=== PATIENT | female | born 1960 | race Caucasian/White ===

== ENCOUNTER 2020-11-18 15:16 | Emergency (ER) | payer BC, MEDICAID ==
[~2020-11-18] VITALS: Ht 157.5 cm; Wt 63.6 kg
[~2020-11-18 15:16] MED LIST: CALC-642 PO; ERGO500014 PO; MULT-227 PO; OMEG300C3 PO; VITA1TAB20 PO
[2020-11-18 15:53] LABS: BASOPHILS # (AUTO) 0.1 X10'3 (0-0.2); BASOPHILS % (AUTO) 0.9 % (0-1); EOSINOPHILS # (AUTO) 0.1 X10'3 (0-0.9); EOSINOPHILS % (AUTO) 1.8 % (0-6); HEMATOCRIT 37.5 % (35.0-45.0); HEMOGLOBIN 12.7 g/dl (12.0-16.0); LYMPHOCYTES # (AUTO) 2.6 X10'3 (1.1-4.8); LYMPHOCYTES % (AUTO) 31.4 % (21-51); MEAN CORPUSCULAR HEMOGLOBIN 28.4 PG (27.0-31.0); MEAN CORPUSCULAR HGB CONC 33.9 g/dL (33.0-36.5); MEAN CORPUSCULAR VOLUME 83.9 FL (78-98); MEAN PLATELET VOLUME 7.2 FL (7.4-10.4); MONOCYTES # (AUTO) 0.5 X10'3 (0-0.9); MONOCYTES % (AUTO) 5.9 % (2-12); PLATELET COUNT 298 X10'3 (140-440); RED BLOOD COUNT 4.47 X10'6 (4.20-5.60); RED CELL DISTRIBUTION WIDTH 13.7 % (11.5-14.5); WHITE BLOOD COUNT 8.3 X10'3 (4.5-11.0)
[2020-11-18 16:09] LABS: ALANINE AMINOTRANSFERASE 20 U/L (12-78); ALBUMIN 3.3 G/DL (3.4-5.0); ALBUMIN/GLOBULIN RATIO 0.7 (1.1-1.5); ALKALINE PHOSPHATASE 76 IU/L (46-116); ANION GAP 10 (8-16); ASPARTATE AMINO TRANSFERASE 14 U/L (10-37); BILIRUBIN,TOTAL 0.4 MG/DL (0.1-1.0); BLOOD UREA NITROGEN 34 MG/DL (7-18); CALCIUM 8.2 MG/DL (8.5-10.1); CHLORIDE 101 MMOL/L (99-107); CREATININE 1.48 MG/DL (0.40-0.90); GLUCOSE 96 MG/DL (70-104); POTASSIUM 3.2 MMOL/L (3.5-5.1); SODIUM 140 MMOL/L (135-145); TOTAL CARBON DIOXIDE 29.3 MMOL/L (24-32); TOTAL PROTEIN 8.2 G/DL (6.4-8.2); eGFR 36 ML/MIN
[2020-11-18 16:15] LABS: LIPASE 163 U/L (73-393)
[2020-11-18] MEDS ORDERED: normal saline 1000ml 1,000 ML IV ONE (16:20)
[2020-11-18] MEDS ORDERED: ondansetron/PF 4mg/2ml inj IV ONE (16:35)
[2020-11-18] MEDS ORDERED: POTASSIUM BICARB 20meq eff tab 20 MEQ TABLET.EFF PO ONE (16:40)
[2020-11-18] MEDS ORDERED: iohexol 300mg/ml 100ml inj. ONE (16:43)
--- NOTE | 2020-11-18 18:13 | NUR ---
pt walking to restroom with this nurse. weak, but able to ambulate. continue monitoring
[2020-11-18 18:46] LABS: CLARITY,URINE CLEAR (Clear); COLOR,URINE YELLOW (Yellow); GLUCOSE, URINE NEGATIVE (Neg); KETONES,URINE NEGATIVE (Neg); LEUKOCYTE ESTERASE ,URINE SMALL (Neg); NITRITES, URINE NEGATIVE (Neg); OCCULT BLOOD,URINE NEGATIVE (Neg); PH,URINE 5.5 (4.8-8.0); PROTEIN,URINE NEGATIVE (Neg); UROBILINOGEN,URINE 0.2 E.U/dL (0.2-1.0)
[2020-11-18 18:49] LABS: UA COLLECTION TYPE VOIDED
[2020-11-18 18:50] LABS: BACTERIA,URINE FEW /HPF (Neg); RBC,URINE NONE SEEN /HPF (0-2); SQUAMOUS EPITHELIAL CELL,UR FEW /LPF (FEW); WBC CLUMPS,URINE MODERATE /HPF (NEGATIVE)
[2020-11-18] MEDS ORDERED: CefTRIAXone 250MG IM Kit w/LIDOcaine IM ONE (19:00)
[2020-11-18] MEDS ORDERED: CIPR-202 PO (19:32)
[2020-11-18 19:48] VITALS: BP 102/72
== END 2020-11-18 19:51 | disposition home or self-care (01) ==
LOC: ER 15:17
DX: N39.0 Urinary tract infection, site not specified (principal); Z20.822 Contact with and (suspected) exposure to COVID-19; R11.0 Nausea; R10.84 Generalized abdominal pain; Z79.899 Other long term (current) drug therapy
CPT/HCPCS: 36415; 70450; 71045; 74177; 80053; 81001; 83690; 83880; 84484; 85025; 87077; 87088; 87186; 87635; 96361; 96372; 96374; 99285; C9803; J0696; J2405; J7030; Q9967

== ENCOUNTER 2020-12-07 16:26 | Emergency (ER) | payer MEDICAID ==
[~2020-12-07] VITALS: Ht 157.5 cm; Wt 67.3 kg
[2020-12-07] MEDS ORDERED: normal saline 1000ML IV soln IVB ONE (16:35)
[2020-12-07] MEDS ORDERED: ondansetron/PF 4mg/2ml inj IV ONE (16:35)
[2020-12-07 17:12] LABS: BASOPHILS # (AUTO) 0.2 X10'3 (0-0.2); BASOPHILS % (AUTO) 2.6 % (0-1); EOSINOPHILS # (AUTO) 0.2 X10'3 (0-0.9); HEMATOCRIT 34.5 % (35.0-45.0); HEMOGLOBIN 11.5 g/dl (12.0-16.0); MEAN CORPUSCULAR HGB CONC 33.2 g/dL (33.0-36.5); MEAN CORPUSCULAR VOLUME 84.3 FL (78-98); MEAN PLATELET VOLUME 7.1 FL (7.4-10.4); NEUTROPHILS # (AUTO) 4.6 X10'3 (1.8-7.7); RED BLOOD COUNT 4.09 X10'6 (4.20-5.60); WHITE BLOOD COUNT 7.4 X10'3 (4.5-11.0)
[2020-12-07 17:13] LABS: EOSINOPHILS % (AUTO) 2.4 % (0-6); LYMPHOCYTES % (AUTO) 26.7 % (21-51); MONOCYTES # (AUTO) 0.5 X10'3 (0-0.9); MONOCYTES % (AUTO) 6.5 % (2-12); NEUTROPHILS % (AUTO) 61.8 % (42-75); PLATELET COUNT 268 X10'3 (140-440); RED CELL DISTRIBUTION WIDTH 14.2 % (11.5-14.5)
[2020-12-07 17:28] LABS: ALANINE AMINOTRANSFERASE 26 U/L (12-78); ALBUMIN 2.9 G/DL (3.4-5.0); ALBUMIN/GLOBULIN RATIO 0.7 (1.1-1.5); ALKALINE PHOSPHATASE 87 IU/L (46-116); ANION GAP 11 (8-16); ASPARTATE AMINO TRANSFERASE 19 U/L (10-37); BILIRUBIN,TOTAL 0.2 MG/DL (0.1-1.0); BLOOD UREA NITROGEN 52 MG/DL (7-18); BUN/CREATININE RATIO 39.4 (6.6-38.0); CALCIUM 7.8 MG/DL (8.5-10.1); CHLORIDE 108 MMOL/L (99-107); CREATININE 1.32 MG/DL (0.40-0.90); GLUCOSE 108 MG/DL (70-104); POTASSIUM 3.1 MMOL/L (3.5-5.1); SODIUM 144 MMOL/L (135-145); TOTAL PROTEIN 7.3 G/DL (6.4-8.2); eGFR 41 ML/MIN
[2020-12-07 17:29] LABS: ETHANOL < 0.010 GM/DL (0.0-0.010); LIPASE 155 U/L (73-393); TROPONIN I < 0.04 NG/ML (0.0-0.05)
[2020-12-07] MEDS ORDERED: potassium Cl 20 mEq SR tablet PO STA (17:31)
[2020-12-07] MEDS ORDERED: potassium Cl 10 mEq/100mL bag IV ONE (17:35)
[2020-12-07] MEDS ORDERED: ONDA4TAB6 PO (17:55)
[2020-12-07 19:00] VITALS: BP 97/64
== END 2020-12-07 19:10 | disposition home or self-care (01) ==
LOC: ER 16:27
DX: E86.0 Dehydration (principal); R11.2 Nausea with vomiting, unspecified; R19.7 Diarrhea, unspecified; R06.02 Shortness of breath; J44.9 Chronic obstructive pulmonary disease, unspecified; Z95.0 Presence of cardiac pacemaker; Z79.899 Other long term (current) drug therapy
CPT/HCPCS: 36415; 71045; 80053; 80320; 83690; 84145; 84484; 85025; 93005; 96365; 96375; 99285; J2405; J3480; J7030

== ENCOUNTER 2024-10-28 10:49 | Emergency (ER) | payer MEDICARE, MEDICAID ==
[~2024-10-28] VITALS: Ht 160 cm; Wt 88.6 kg
[~2024-10-28 10:49] MED LIST changes: +ONDA4TAB6 PO; +VITA-290 PO; -VITA1TAB20 PO
[2024-10-28 10:54] VITALS: BP 130/65; PULSE 70; O2SAT 94
[2024-10-28] MEDS: ondansetron 4mg rapidly disintigrating tab PO ONE (11:29)
[2024-10-28] MEDS: HYDROcodone/acetaminophen 10/325mg tab PO ONE (11:29)
[2024-10-28] MEDS ORDERED: HYDR-3973 PO (12:02)
[2024-10-28] MEDS: morphine sulfate IR 15MG tablet PO STA (12:23)
[2024-10-28 12:34] VITALS: RESP 17; TEMP 97.2
[2024-10-30] MEDS ORDERED: LAMO25TA5 PO (13:54)
[2024-10-30] MEDS ORDERED: BUSP30TA3 PO (13:54)
[2024-10-30] MEDS ORDERED: GABA-530 PO (13:54)
[2024-10-30] MEDS ORDERED: HYDR25TA4 PO (13:54)
[2024-10-30] MEDS ORDERED: FERR325T29 PO (13:54)
[2024-10-30] MEDS ORDERED: DULO60CA65 PO (13:54)
[2024-10-30] MEDS ORDERED: LUMA21CA PO (13:54)
[2024-10-30] MEDS ORDERED: POTA-206 PO (13:54)
[2024-10-30] MEDS ORDERED: LISI20TA28 PO (13:54)
== END 2024-10-28 12:36 | disposition home or self-care (01) ==
LOC: ER 10:49
DX: S42.292A Other displaced fracture of upper end of left humerus, initial encounter for closed fracture (principal); E11.9 Type 2 diabetes mellitus without complications; J44.9 Chronic obstructive pulmonary disease, unspecified; Z95.0 Presence of cardiac pacemaker; Z79.899 Other long term (current) drug therapy; W18.2XXA Fall in (into) shower or empty bathtub, initial encounter; Y93.E1 Activity, personal bathing and showering; Y92.89 Other specified places as the place of occurrence of the external cause; Y99.8 Other external cause status
CPT/HCPCS: 29105; 73030; 73060; 99284; A4565; L3650

== ENCOUNTER 2024-12-15 08:52 | Inpatient (IN) | payer MEDICARE, MEDICAID ==
[2024-12-02 16:21] LABS: BASOPHILS % (AUTO) 0.4 % (0-1); EOSINOPHILS % (AUTO) 0 % (0-6); LYMPHOCYTES # (AUTO) 2.1 X10'3 (1.1-4.8); LYMPHOCYTES % (AUTO) 25.7 % (21-51); MEAN CORPUSCULAR HEMOGLOBIN 29.9 PG (27.0-31.0); MEAN CORPUSCULAR HGB CONC 33.8 g/dL (33.0-36.5); MEAN CORPUSCULAR VOLUME 88.5 FL (78-98); MEAN PLATELET VOLUME 6.6 FL (7.4-10.4); MONOCYTES # (AUTO) 0.8 X10'3 (0-0.9); MONOCYTES % (AUTO) 10.2 % (2-12); NEUTROPHILS # (AUTO) 5.3 X10'3 (1.8-7.7); NEUTROPHILS % (AUTO) 63.7 % (42-75); PRE OP HEMATOCRIT 36.1 % (35.0-45.0); PRE OP HEMOGLOBIN 12.2 g/dL (12.0-16.0); PRE OP PLATELET COUNT 345 X10'3 (140-440); PRE OP WHITE BLOOD COUNT 8.3 10'3 (4.8-10.8); RED BLOOD COUNT 4.07 X10'6 (4.20-5.60); RED CELL DISTRIBUTION WIDTH 13.8 % (11.5-14.5)
[2024-12-02 16:28] LABS: PRE OP INR 1.1 INR; PRE OP PROTIME 11.2 SECONDS (9.0-12.0)
[2024-12-02 16:30] LABS: ALBUMIN/GLOBULIN RATIO 0.4 (1.1-1.5); ALKALINE PHOSPHATASE 111 IU/L (46-116); BLOOD UREA NITROGEN 21 MG/DL (7-18); BUN/CREATININE RATIO 12.7 (10.0-20.0); CALCIUM 8.7 MG/DL (8.5-10.1); CHLORIDE 103 MMOL/L (99-107); CREATININE 1.66 MG/DL (0.40-0.90); PRE OP ALT 27 U/L (30-65); PRE OP ANION GAP 9 (8-16); PRE OP AST 28 U/L (10-37); PRE OP BILIRUB, TOTAL 0.5 MG/DL (0.0-1.0); PRE OP GLUCOSE 101 MG/DL (70-104); PRE OP SODIUM 139 MMOL/L (135-145); TOTAL CARBON DIOXIDE 27.5 MMOL/L (24-32); TOTAL PROTEIN 9.9 G/DL (6.4-8.2); eGFR 31 ML/MIN
[2024-12-02 16:34] LABS: PRE OP POTASSIUM 3.1 MMOL/L (3.4-5.1)
[~2024-12-15] VITALS: Ht 160 cm; Wt 79.7 kg
[2024-12-15] VITALS (24 sets, daily range): BP systolic 80–122; BP diastolic 41–70; PULSE 60–83; RESP 11–16; TEMP 95.8–98.3; O2SAT 90–99
[~2024-12-15 08:52] MED LIST changes: +BUSP30TA3 PO; -CALC-642 PO; +DULO60CA65 PO; -ERGO500014 PO; +FERR325T29 PO; +GABA-530 PO; +HYDR25TA4 PO; +LAMO-24 PO; +LISI20TA28 PO; +LUMA21CA PO; -MULT-227 PO; -OMEG300C3 PO; -ONDA4TAB6 PO; +VANCOMYCIN 1,500MG inj. 1,500 MG in normal saline 500ml IV soln 300 ML IV ONE; -VITA-290 PO
[2024-12-15] MEDS: famotidine 20mg tablet PO ONE (09:46)
[2024-12-15] MEDS: ceFAZolin 2gm/dext,iso 50mL 50 ML IV ONE (09:47)
[2024-12-15] MEDS: ringers solution, lacted 1,000 ML IV SCH ×2 (09:47→13:45)
[2024-12-15] MEDS: VANCOMYCIN/H2O 1.5g/300mL PB 300 ML IV ONE (09:47)
[2024-12-15 10:09] LABS: ISTAT CREATININE 1.5 mg/dL (0.6-1.1); ISTAT IONIZED CALCIUM 1.16 mmol/L (1.03-1.32); ISTAT K 3.3 mmol/L (3.5-5.1); POC BUN/CREATININE RATIO 17.3 (6.6-38.0)
[2024-12-15] MEDS ORDERED: bacitracin 15gm ointment TP ONE (10:35)
[2024-12-15] MEDS ORDERED: sevoflurane 250ml liquid IH ONE (11:30)
[2024-12-15] MEDS ORDERED: midazolam 1 mg/ML 2ml injection ONE (11:43)
[2024-12-15] MEDS ORDERED: fentaNYL/PF 50MCG/1 ML 2ML syringe ONE (11:43)
[2024-12-15] MEDS ORDERED: albumin (Human) 5% 250ml 250 ML IV ONE (12:25)
[2024-12-15] MEDS ORDERED: hydrALAZINE 20mg/ml inj. IV PRN (13:45)
[2024-12-15] MEDS ORDERED: labetalol 20mg/4ml (5mg/ml) syringe IV PRN (13:45)
[2024-12-15] MEDS ORDERED: ondansetron/PF 4mg/2ml inj IV PRN (13:45)
[2024-12-15] MEDS ORDERED: morphine 2 MG/ML inj. syringe IV PRN (13:45)
[2024-12-15] MEDS ORDERED: HYDROmorphone/PF 0.2 MG/ML SYRINGE IV PRN (13:45)
[2024-12-15] MEDS ORDERED: vancomycin 1,000mg inj ONE (13:48)
[2024-12-15] MEDS: vancomycin 1,000mg inj OGT ONE (14:00)
[2024-12-15] MEDS ORDERED: ePHEDrine 50MG/ML INJ. ONE (14:06)
[2024-12-15] MEDS ORDERED: dexamethasone sod phosphate 4mg/ml inj. ONE (14:07)
[2024-12-15] MEDS ORDERED: ROPIVAcaine 0.5% (5mg/ml) 30ml vial ONE (14:07)
[2024-12-15] MEDS ORDERED: acetaminophen 325mg tablet PO PRN (14:25)
[2024-12-15] MEDS ORDERED: diphenhydrAMINE 25mg capsule PO PRN ×2 (14:25)
[2024-12-15] MEDS ORDERED: magnesium hydroxide 30ml (MOM) UD suspension PO PRN (14:25)
[2024-12-15] MEDS ORDERED: bisacodyl 10mg suppository rectal RC PRN (14:25)
[2024-12-15] MEDS ORDERED: PCA WASTE DOCUMENTATION 1 MG ML MC SCH (14:25)
[2024-12-15] MEDS ORDERED: naloxone 0.4 mg/ml inj IV PRN (14:25)
--- NOTE | 2024-12-15 14:38 | OPERATIVE REPORT ---
Operative Report Providers to ~ Date of Procedure: Dec 15, 2024 Pre-Operative Diagnosis: Proximal proximal left humerus fracture Post-Operative Diagnosis SAME as PRE-Op Procedure Performed Left Humerus ORIF Surgeon: Ananth Holden MD Packing Attendant Bobby Salcedo MD Anesthesiologist: Tay Montanez Type of Anesthesia: General Findings: Two part unstable proximal left humerus fracture Complications None Prosthetics\Implants used: Three hole left proximal humerus plate multiple locking and compression screws. Estimated Blood Loss: Proximally 100 cc Specimen Removed: An none Description of Procedure: Patient was taken to the operating room after I had obtained informed consent discussing her of the need for evaluation anesthesia in the potential for surgical intervention in the form of the proximal humeral plating. Risks benefits potential complications and limitations were discussed in detail including the need for removal of the plate as subcutaneous to have significant pain or shoulder stiffness after the bone fracture had healed. I obtained in formed consent she signed the extent of the consent form and I signed her left shoulder. She was now taken to the operating room she was given a general anesthetic placed in a semi-sitting beach chair position under general anesthesia SCDs were placed in her lower extremities. Her left shoulder was examined under anesthesia under C-arm fluoroscopy revealing the two part fracture being still unstable 6 in post injury without any evidence of callus formation. This is therefore necessitated need for surgical stabilization of the fracture. Proximal fracture involving the greater trochanter had minimal displacement and no significant elevation so therefore I am treating this primarily has a two point fracture around the anatomic neck. Her left shoulder and arm were prepped and draped in usual sterile orthopedic fashion surgical time-out was taken per protocol and the case was then. A [employer] arm shoulder manipulator at fisehr was used during this case. An anterior deltopectoral approach was used this measured approximately 8 in in length minimal release of the pectoralis attachments of the proximal humerus was required the biceps tenolysis was a tenodesis was required for the plate fixation of the proximal humerus this is done while releasing in the rotator cuff interval and using tenotomy scissors to remove and released the biceps tendon at the attachment site of the superior labrum periosteum was primarily intact at the fracture site and a proximal humeral plate was fashion to be parallel to the lateral aspect of the bicipital groove fixating the proximal screws 1st and then reducing the fracture with a compression screws to the plate and under fluoroscopic guidance achieving near anatomic fixation and alignment of fracture locking screws were then used along the distal shaft as well as locking screws in the humeral head anterior and posterior screws were used. Intra-articular C-arm fluoroscopy was used with a sterile internal rotation of the head and a fluoroscopic time and real-time to make sure that we had excellent fixation and placement of all screws then were confined within the humeral head hemostasis was achieved meticulously with electrocautery of the cephalic vein was left intact and retracted laterally during the approach. Copious antibiotic antiseptic irrigation was accomplished with Aricept. No drains were required. Closure of the deltopectoral fascia was accomplished with 0 Vicryl subcuticular closure was accomplished with 2-0 Vicryl and skin was closed with skin anai silver dressing was applied I had island dressing was applied a shoulder immobilizer was applied. Placement after fixation the shoulder was taken through a range of motion found to be stable. There were no apparent perioperative complications Counts repoted as correct: Yes ANANTH HOLDEN MD Dec 15, 2024 14:38
[2024-12-15] MEDS: morphine 4 MG/ML inj SYRINge IV PRN (15:03)
[2024-12-15] MEDS: HYDROmorphone/PF 0.2 MG/ML SYRINGE IV PRN (15:10)
[2024-12-15] MEDS: ceFAZolin/D5W- 1GM premix 50 ML IV SCH (17:05)
[2024-12-15] MEDS: HYDROmorphone 1 mg/ml syringe IV PRN (17:17)
[2024-12-15] MEDS: tranexamic acid inj. 800 MG in normal saline 100ml IV soln 92 ML IV ONE (17:31)
--- NOTE | 2024-12-15 19:18 | CONSULTATION REPORT - RESIDENT ---
Consult Providers to CC Resident Creating Document: RENETTARENETTA HORNECAIO Jasso RES History of Present Illness Primary Medical Doctor: Dr. Joan Pollard. [facility]. Concrete Pile Driver Operator: Dr. Jed Cuba. Reason for Admit\Complaint: Left shoulder pain History of Present Illness [id number] female patient with past medical history of hypertension, sick sinus syndrome s/p pacemaker, epileptic seizures, came to the hospital with chief complaint of left shoulder pain. The patient reports that approximately one month ago she slipped and fell down in her shower. At that time she call to the ambulance and the patient was taken to the emergency department. The patient endorses that she has a follow-up with orthopedic surgeon Dr. Torres, who decided to perform three vergara left proximal humerus plate, multiple locking and compression screws today. We were consulted for further management of comorbidities. The patient currently denies any chest pain, shortness of breath, palpitations, urinary intestinal symptoms. Reports pain in surgical area scale 6/10 in intensity without radiation, sharp type. Allergies: Coded Allergies: No Known Allergies (Unverified , 10/29/24) Home Medications Home Medications Active Reported Lisinopril 20 Mg Tablet 0.5 Tab PO DAILY Hydrochlorothiazide 25 Mg Tablet 0.5 Tab PO DAILY Ferrous Sulfate 325 Mg (65 Mg Iron) Tablet 1 Tab PO DAILY Lamotrigine 25 Mg Tablet 2 Tab PO BID Gabapentin 100 Mg Capsule 300 Mg PO TID Caplyta (Lumateperone Tosylate) 21 Mg Capsule 1 Cap PO DAILY Duloxetine HCl 60 Mg Capsule.dr 2 Cap PO DAILY Buspirone HCl 30 Mg Tablet 1 Tab PO BID Past Medical History Past Medical History Hypertension taking hydrochlorothiazide and lisinopril. Sick sinus syndrome s/p pacemaker. Epilepsy. Past Surgical History Surgical History Comment S/P pacemaker. Cholecystectomy. Tonsillectomy. Hysterectomy and oophorectomy. S/p ventral abdominal hernia. Family History Family History: (COPD) Chronic obstructive lung disease MOTHER, , Age: 59, Cause: Pancreatic cancer (DM Type 2) Diabetes mellitus type 2 MOTHER, , Age: 59, Cause: Pancreatic cancer Abdominal aortic aneurysm (AAA) repair FATHER (5 aneurysms w/ 5 stents) Asbestosis FATHER FH: renal failure FATHER Past Social History Social History Comment Denies smoking. Denies alcohol use. Denies drugs use. The patient lives alone. Grandson usually helps her. Exam Vitals: Vital Signs Date Time Temp Pulse Resp B/P (MAP) Pulse Ox O2 Delivery O2 Flow Rate FiO2 12/15/24 18:30 97.5 69 16 80/51 (61) 91 Nasal Cannula 2.0 Physical exam: General: Well alert, well oriented, not confused, not agitated, not in acute distress, well cooperated during the physical. HEENT: Conjunctive are pink, sclerae clear, no icterus, pupil is equal in both sides, reactive to light, no ear discharge, no pharyngeal erythema or an edema. Neck: Supple, no JVD, no lymphadenopathy and thyromegaly. Chest: Equal air entry on both lungs, no additional sounds no rhonchi no wheezing at the moment. Cardiovascular: S1-S2 regular sinus rhythm and, regular rate, no gallops, no rubs, no murmurs Abdomen: No visible peristalsis, Bowel sounds present on auscultation, soft, nontender, no guarding, no rigidity, presence of abdominal scars from previous surgery without signs of infection or inflammation. Extremities: No obvious deformities, no pitting edema bilaterally, capillary refill intact, peripheral pulsations are intact on both sides, presence of clean dressing in the left shoulder. Central Nervous System: No focal neurological deficits, no motor or sensory weakness in all 4 extremities, could move all 4 extremities, 2+ deep tendon reflexes, negative Babinski. Musculoskeletal: No joint swelling, deformities, inflammations, and no scoliosis and back tenderness Skin: Warm and dry. Diagnostic Data Diagnostic Data: Laboratory Tests Test 12/02/24 16:05 Prothrombin Time 11.2 SECONDS (9.0-12.0) INR International Normalized Ratio 1.1 INR Activated Partial Thromboplast Time 29 SECONDS (22-32) Additional Plan Assessment and plan: 64-year-old female patient came to the hospital with chief complaint of left shoulder pain diagnosed with left proximal humerus fracture. Underwent surgical repair on 12/15/2024. We were consulted for further management of comorbidities . Left shoulder pain: Left proximal humerus fracture: S/P left proximal humerus plate multiple locking and compression screws: POD 0: The patient reports that she had a mechanical fall in his shower. The patient was scheduled for surgical repair on 12/15/[address] Torres. Pain control with Dilaudid. On aspirin 325 mg daily. On cefazolin q.8h IV. To be stopped on 12/16/2024. Acute kidney injury likely secondary to renal tubular stasis: Hypokalemia: Creatinine 1.66, GFR 35, BUN/creatinine ratio 17.3. Follow-up urine lytes. On ranger lactate at 20 mL/hour. Potassium replacement protocol in place. Hypertension: Current blood pressure is 80/51. We will held blood pressure medication. Epilepsy: We will continue her home medication lamotrigine. Code status: Full code DVT prophylaxis: Currently on aspirin 325 mg. Analgesia/sedation: Dilaudid Line/tube: PIV GI prophylaxis: None Nutrition: Regular diet PT: Ordered Prognosis: Guarded Disposition: We will continue medical treatment. Anticipated discharge tomorrow. Caio Multani Internal Medicine Resident [facility] Date of Service: Dec 15, 2024 Billing Provider: VERN RAZO MD Common Visit Codes: [id number] INP/OBS CARE (HIGH) CAIO ALVARADO, RES Dec 15, 2024 19:17 VERN RAZO MD Dec 16, 2024 22:31
[2024-12-15] MEDS ORDERED: potassium Cl 40MEQ/1/2NS 520ml 520 ML IV PRN (19:30)
[2024-12-15] MEDS ORDERED: potassium Cl 20 mEq SR tablet PO PRN (19:30)
[2024-12-15] MEDS ORDERED: magnesium sulf-water 4G/100mL 100 ML IV PRN (19:30)
[2024-12-15] MEDS ORDERED: magnesium Cl slow-release 64mg tablet PO PRN (19:30)
[2024-12-15] MEDS: acetaminophen 325mg tablet PO SCH (20:16)
[2024-12-15] MEDS: lamoTRIgine 25mg tablet PO SCH (20:16)
[2024-12-15] MEDS: gabapentin 300mg capsule PO SCH (20:16)
[2024-12-15] MEDS: potassium Cl 20 mEq SR tablet PO PRN (20:16)
[2024-12-15] MEDS: busPIRone 15mg tablet PO SCH (20:17)
[2024-12-15] MEDS: vancomycin/NS 1 GM ADD-VANTAGE 250 ML IV SCH (20:17)
[2024-12-15] MEDS: sennosides 8.6mg tablet PO SCH (20:17)
[2024-12-15] MEDS: potassium Cl 20mEq in NS 1,000 ML IV SCH (20:18)
[2024-12-15] MEDS ORDERED: gabapentin 100mg capsule PO SCH (21:00)
--- NOTE | 2024-12-15 22:27 | RADIOLOGY REPORT ---
LEFT SHOULDER 1 VIEW REASON FOR EXAM: POST OP. TECHNIQUE: AP view of the left shoulder is submitted for review. COMPARISON: Left shoulder series 10/28/2024 FINDINGS: Skin anai project over the shoulder. There is extensive fixation hardware at the humeral head and proximal shaft. There is bony callus about the old fracture sites in the humeral head and neck. There is partial visualization of a cardiac pacer. No new fracture is identified. The soft tiss ues are grossly unremarkable. IMPRESSION: Bony callus formation in the area of surgically fixed humeral head and neck fractures. No new fracture is identified.
[2024-12-16] VITALS (7 sets, daily range): BP systolic 98–138; BP diastolic 50–79; PULSE 53–82; RESP 15–17; TEMP 97.2–98.4; O2SAT 90–98
[2024-12-16] MEDS: oxyCODONE IR 5mg (immed. release) tablet PO PRN ×2 (03:09→11:40)
[2024-12-16] MEDS: HYDROmorphone inj. 0.5 MG/0.5 ML DISP.SYRIN IV PRN ×2 (04:47→14:37)
[2024-12-16] MEDS: normal saline 1000ml 1,000 ML IV SCH (06:50)
[2024-12-16] MEDS: LUMATEPERONE TOSYLATE 21 MG PO SCH (08:00)
[2024-12-16] MEDS: ferrous sulfate 325mg tablet PO SCH (08:02)
[2024-12-16] MEDS: duloxetine 30mg CAPSULE.DR PO SCH (08:02)
[2024-12-16] MEDS: aspirin 325mg tablet PO SCH (08:03)
[2024-12-16 08:51] LABS: BASOPHILS % (AUTO) 0.1 % (0-1); EOSINOPHILS % (AUTO) 0 % (0-6); HEMATOCRIT 32.2 % (35.0-45.0); HEMOGLOBIN 10.5 g/dl (12.0-16.0); LYMPHOCYTES # (AUTO) 1.7 X10'3 (1.1-4.8); LYMPHOCYTES % (AUTO) 10.9 % (21-51); MEAN CORPUSCULAR HEMOGLOBIN 29.2 PG (27.0-31.0); MEAN CORPUSCULAR HGB CONC 32.5 g/dL (33.0-36.5); MEAN CORPUSCULAR VOLUME 89.9 FL (78-98); MEAN PLATELET VOLUME 7.5 FL (7.4-10.4); MONOCYTES # (AUTO) 1.6 X10'3 (0-0.9); MONOCYTES % (AUTO) 9.8 % (2-12); NEUTROPHILS # (AUTO) 12.7 X10'3 (1.8-7.7); NEUTROPHILS % (AUTO) 79.2 % (42-75); PLATELET COUNT 271 X10'3 (140-440); RED BLOOD COUNT 3.58 X10'6 (4.20-5.60); RED CELL DISTRIBUTION WIDTH 13.6 % (11.5-14.5); WHITE BLOOD COUNT 16.1 X10'3 (4.5-11.0)
[2024-12-16 09:08] LABS: ALANINE AMINOTRANSFERASE 18 U/L (12-78); ALBUMIN 2.5 G/DL (3.4-5.0); ALBUMIN/GLOBULIN RATIO 0.4 (1.1-1.5); ALKALINE PHOSPHATASE 83 IU/L (46-116); ANION GAP 8 (8-16); ASPARTATE AMINO TRANSFERASE 14 U/L (10-37); BILIRUBIN,TOTAL 0.3 MG/DL (0.1-1.0); BLOOD UREA NITROGEN 25 MG/DL (7-18); CHLORIDE 108 MMOL/L (99-107); CREATININE 1.56 MG/DL (0.40-0.90); GLUCOSE 70 MG/DL (70-104); POTASSIUM 4.2 MMOL/L (3.5-5.1); SODIUM 143 MMOL/L (135-145); TOTAL CARBON DIOXIDE 27.5 MMOL/L (24-32); TOTAL PROTEIN 8.4 G/DL (6.4-8.2); eCRCL 29 ML/MIN; eGFR 33 ML/MIN
[2024-12-16 09:31] LABS: CALCIUM 7.9 MG/DL (8.5-10.1)
--- NOTE | 2024-12-16 11:43 | PROGRESS NOTE- Residence ---
Progress Note - Resident Providers to CC Resident Creating Document: CAIO ALVARADO, VIC ~ Antibiotic Timeout Antibiotic Ordered?: Yes Subjective The patient has been evaluated at the bedside. The patient complains of pain in surgical area scaling around 8/10 in intensity without radiation, sharp type. Objective Vital Signs Date Time Temp Pulse Resp B/P (MAP) Pulse Ox O2 Delivery O2 Flow Rate FiO2 12/16/24 08:01 15 12/16/24 06:00 98.0 61 106/58 (74) 91 Room Air 12/15/24 20:00 2.0 Physical exam: General: Well alert, well oriented, not confused, not agitated, not in acute distress, well cooperated during the physical. HEENT: Conjunctive are pink, sclerae clear, no icterus, pupil is equal in both sides, reactive to light, no ear discharge, no pharyngeal erythema or an edema. Neck: Supple, no JVD, no lymphadenopathy and thyromegaly. Chest: Equal air entry on both lungs, no additional sounds no rhonchi no wheezing at the moment. Cardiovascular: S1-S2 regular sinus rhythm and, regular rate, no gallops, no rubs, no murmurs Abdomen: No visible peristalsis, Bowel sounds present on auscultation, soft, nontender, no guarding, no rigidity, presence of abdominal scars from previous surgery without signs of infection or inflammation. Extremities: No obvious deformities, no pitting edema bilaterally, capillary refill intact, peripheral pulsations are intact on both sides, presence of clean dressing in the left shoulder. Central Nervous System: No focal neurological deficits, no motor or sensory weakness in all 4 extremities, could move all 4 extremities, 2+ deep tendon reflexes, negative Babinski. Musculoskeletal: No joint swelling, deformities, inflammations, and no scoliosis and back tenderness Skin: Warm and dry. Result Diagram: 12/16/24 0725 12/16/24 0725 Coagulation Studies Laboratory Tests Test 12/02/24 16:05 Prothrombin Time 11.2 SECONDS (9.0-12.0) INR International Normalized Ratio 1.1 INR Activated Partial Thromboplast Time 29 SECONDS (22-32) Assessment Assessment 64-year-old female patient came to the hospital with chief complaint of left shoulder pain diagnosed with left proximal humerus fracture. Underwent surgical repair on 12/15/2024. We were consulted for further management of comorbidities. Plan Plan Left shoulder pain: Left proximal humerus fracture: S/P left proximal humerus plate multiple locking and compression screws on 12/15/2024: The patient reports that she had a mechanical fall in his shower. The patient was scheduled for surgical repair on 12/15/[address] Torres. Pain control with Dilaudid. On aspirin 325 mg daily. On cefazolin q.8h IV. To be stopped on 12/16/2024. 12/16/2024: Increasing dose of pain medication. Completed dose of cefazolin. Physical therapy evaluated the patient. Recommends discharged home in two sessions of physical therapy. Acute kidney injury likely secondary to renal tubular stasis: Hypokalemia: Creatinine 1.66, GFR 35, BUN/creatinine ratio 17.3. Follow-up urine lytes. On ranger lactate at 20 mL/hour. Potassium replacement protocol in place. 12/16/2024: Kidney function improving. Potassium levels within reference range. Fractional excretion of sodium: 0.2%, fractional excretion of urea: 23% indicating prerenal JHONATHAN. We will continue IV fluids at 50 mL/hour. Hypertension: Current blood pressure is 80/51. We will held blood pressure medication. 12/16/2024: Blood pressure 106/58. Improving. Keep blood pressure medication in hold. Epilepsy: We will continue her home medication lamotrigine. Code status: Full code DVT prophylaxis: Currently on aspirin 325 mg. Analgesia/sedation: Dilaudid Line/tube: PIV GI prophylaxis: None Nutrition: Regular diet PT: Recommends discharged home after two sessions of PT. Prognosis: Guarded Disposition: We will continue medical treatment. Anticipated discharge tomorrow. Caio Multani Internal Medicine Resident [facility] Addendum ac bl loss anemia 2 to sx, monitor h/h Date of Service: Dec 16, 2024 Billing Provider: VERN RAZO MD Common Visit Codes: [id number] INP/OBS CARE(HIGH) CAIO ALVARADO, RES Dec 16, 2024 11:43 VERN RAZO MD Dec 16, 2024 22:33
[2024-12-16] MEDS: ondansetron/PF 4mg/2ml inj IV PRN (20:11)
[2024-12-17] MEDS: metoclopramide 5 mg/ml inj IV ONE (00:28)
[2024-12-17 02:00] VITALS: BP 149/79; PULSE 81; RESP 22; TEMP 98; O2SAT 93
[2024-12-17] MEDS ORDERED: metoclopramide 5 mg/ml inj IV PRN (02:30)
[2024-12-17] MEDS: proCHLORperazine 10 MG/2 ml inj IV ONE (02:43)
[2024-12-17 06:00] VITALS: BP 169/102; PULSE 81; RESP 20; TEMP 98.1; O2SAT 94
[2024-12-17 07:41] LABS: BASOPHILS % (AUTO) 0.2 % (0-1); EOSINOPHILS % (AUTO) 0 % (0-6); HEMATOCRIT 35.5 % (35.0-45.0); HEMOGLOBIN 11.7 g/dl (12.0-16.0); LYMPHOCYTES # (AUTO) 2.5 X10'3 (1.1-4.8); LYMPHOCYTES % (AUTO) 17.7 % (21-51); MEAN CORPUSCULAR HEMOGLOBIN 29.4 PG (27.0-31.0); MEAN PLATELET VOLUME 7.2 FL (7.4-10.4); NEUTROPHILS # (AUTO) 10.8 X10'3 (1.8-7.7); NEUTROPHILS % (AUTO) 75.1 % (42-75); PLATELET COUNT 303 X10'3 (140-440); RED BLOOD COUNT 3.99 X10'6 (4.20-5.60); RED CELL DISTRIBUTION WIDTH 14.1 % (11.5-14.5); WHITE BLOOD COUNT 14.4 X10'3 (4.5-11.0)
[2024-12-17 08:00] VITALS: RESP 17; O2SAT 97
[2024-12-17] MEDS: gabapentin 300mg capsule PO SCH (08:00)
[2024-12-17 08:36] LABS: ALANINE AMINOTRANSFERASE 9 U/L (12-78); ALBUMIN 2.4 G/DL (3.4-5.0); ALBUMIN/GLOBULIN RATIO 0.4 (1.1-1.5); ALKALINE PHOSPHATASE 85 IU/L (46-116); ANION GAP 6 (8-16); ASPARTATE AMINO TRANSFERASE 19 U/L (10-37); BILIRUBIN,TOTAL 0.3 MG/DL (0.1-1.0); BLOOD UREA NITROGEN 22 MG/DL (7-18); BUN/CREATININE RATIO 14.3 (10.0-20.0); CALCIUM 7.8 MG/DL (8.5-10.1); CHLORIDE 106 MMOL/L (99-107); CREATININE 1.54 MG/DL (0.40-0.90); GLUCOSE 116 MG/DL (70-104); POTASSIUM 3.9 MMOL/L (3.5-5.1); SODIUM 141 MMOL/L (135-145); TOTAL CARBON DIOXIDE 28.8 MMOL/L (24-32); TOTAL PROTEIN 8.1 G/DL (6.4-8.2); eCRCL 30 ML/MIN; eGFR 34 ML/MIN
[2024-12-17 10:00] VITALS: BP 138/90; PULSE 83; RESP 20; TEMP 97.8; O2SAT 95
[2024-12-17] MEDS ORDERED: proMETHazine 25mg tablet PO PRN (10:25)
--- NOTE | 2024-12-17 11:10 | RADIOLOGY REPORT ---
EXAM: CT CT ABDOMEN PELVIS HISTORY: abd pain COMPARISON: CT CT ABDOMEN PELVIS on DOS: 10/30/24, CT ABDOMEN PELVIS on DOS: 11/18/20 TECHNIQUE: Helical CT images of the abdomen and pelvis were performed without IV contrast. Sagittal a nd coronal reformatted images were obtained. This CT exam was performed using 1 or more of the follow ing dose reduction techniques: Automated exposure control, adjustment of the mA and/or kv according t o patient size, or the use of iterative reconstruction techniques. Radiation Dose Information: CT Dose: CTDI volume is 35.58 mGy. Dose-length product is 1818.58 mGy*cm FINDINGS: CT abdomen: There are small bilateral pleural effusions. There is left lower lobe scarring and atele ctasis. The heart is borderline enlarged. There is a left chest pacemaker. There is dilatation of the distal esophagus. There are postoperative changes of cholecystectomy and gastric bypass. The spleen measures 12.2 cm longitudinal. The liver measures 19 cm longitudinal. The pancreas, kidneys, and a drenal glands are unremarkable. No abdominal aortic aneurysm or dissection. CT pelvis: There are multiple loops of mildly dilated small bowel in the mid and left abdomen, some o f which demonstrate mild wall thickening and adjacent mesenteric fluid and fat stranding, and these f indings are new versus CT scan dated 10/30/2024. There is fecalization of multiple loops of small imer wel. There is fecal retention in the colon. No free air. There is low volume free fluid in the pelvi s. The appendix and urinary bladder are unremarkable. The uterus is surgically absent. There is a lip stephen between the left gluteus medius and se muscles. There is mild lumbar levoscoliosis. There is [id number] lumbar degenerative disc disease and facet arthropathy. There is mild osteoarthriti s of the hips. IMPRESSION: 1. Small bilateral pleural effusions and left lower lobe scarring and atelectasis. 2. Dilatation of the distal esophagus. 3. Loops of mildly dilated small bowel, some of which demonstrate wall thickening and adjacent fluid and fat stranding, suggestive of enteritis. No evidence of high-grade bowel obstruction. 4. Postoperative changes of cholecystectomy, hysterectomy, and gastric bypass. 5. Fecal retention in the colon suggestive of constipation. Fecalization of multiple loops of small bowel is a nonspecific finding, but may be related to slow transit.
--- NOTE | 2024-12-17 11:38 | RADIOLOGY REPORT ---
C-ARM FLUOROSCOPY: PROCEDURE: Left shoulder ORIF FLUOROSCOPY TIME: 51.1 seconds DAP: 6.4 mgy FINDINGS: Spot intraoperative C arm radiographs demonstrating left shoulder ORIF. IMPRESSION: Please refer to surgical report for detailed findings.
--- NOTE | 2024-12-17 13:35 | PROGRESS NOTE- Residence ---
Progress Note - Resident Providers to CC Resident Creating Document: MAGDY ALVARADO, RES ~ Antibiotic Timeout Antibiotic Ordered?: No Subjective The patient has been evaluated at the bedside. The patient complaining of pain in surgical area and abdominal pain. The patient was refusing pain medication. Objective Vital Signs Date Time Temp Pulse Resp B/P (MAP) Pulse Ox O2 Delivery O2 Flow Rate FiO2 12/17/24 10:00 97.8 83 20 138/90 (106) 95 Room Air 12/16/24 20:00 2.0 Physical exam: General: Well alert, well oriented, not confused, not agitated, not in acute distress, well cooperated during the physical. HEENT: Conjunctive are pink, sclerae clear, no icterus, pupil is equal in both sides, reactive to light, no ear discharge, no pharyngeal erythema or an edema. Neck: Supple, no JVD, no lymphadenopathy and thyromegaly. Chest: Equal air entry on both lungs, no additional sounds no rhonchi no wheezing at the moment. Cardiovascular: S1-S2 regular sinus rhythm and, regular rate, no gallops, no rubs, no murmurs Abdomen: No visible peristalsis, Bowel sounds present on auscultation, soft, nontender, no guarding, no rigidity, presence of abdominal scars from previous surgery without signs of infection or inflammation. Extremities: No obvious deformities, no pitting edema bilaterally, capillary refill intact, peripheral pulsations are intact on both sides, presence of clean dressing in the left shoulder. Central Nervous System: No focal neurological deficits, no motor or sensory weakness in all 4 extremities, could move all 4 extremities, 2+ deep tendon reflexes, negative Babinski. Musculoskeletal: No joint swelling, deformities, inflammations, and no scoliosis and back tenderness Skin: Warm and dry. Result Diagram: 12/17/24 0715 12/17/24 0715 Coagulation Studies Laboratory Tests Test 12/02/24 16:05 Prothrombin Time 11.2 SECONDS (9.0-12.0) INR International Normalized Ratio 1.1 INR Activated Partial Thromboplast Time 29 SECONDS (22-32) Assessment Assessment 64-year-old female patient came to the hospital with chief complaint of left shoulder pain diagnosed with left proximal humerus fracture. Underwent surgical repair on 12/15/2024. We were consulted for further management of comorbidities. Plan Plan Left shoulder pain: Left proximal humerus fracture: S/P left proximal humerus plate multiple locking and compression screws on 12/15/2024: The patient reports that she had a mechanical fall in his shower. The patient was scheduled for surgical repair on 12/15/[address] Torres. Pain control with Dilaudid. On aspirin 325 mg daily. On cefazolin q.8h IV. To be stopped on 12/16/2024. 12/16/2024: Increasing dose of pain medication. Completed dose of cefazolin. Physical therapy evaluated the patient. Recommends discharged home in two sessions of physical therapy. 12/17/2024: The patient was refusing pain medication. Encouraged to do her pain medication. We will continue monitoring the patient, follow-up with physical therapy. Anticipated discharge tomorrow. The patient also complains of left lower abdominal pain, order CT scan of the abdomen. Acute kidney injury likely secondary to renal tubular stasis: Hypokalemia: Creatinine 1.66, GFR 35, BUN/creatinine ratio 17.3. Follow-up urine lytes. On ranger lactate at 20 mL/hour. Potassium replacement protocol in place. 12/16/2024: Kidney function improving. Potassium levels within reference range. Fractional excretion of sodium: 0.2%, fractional excretion of urea: 23% indicating prerenal JHONATHAN. We will continue IV fluids at 50 mL/hour. 12/17/2024: Kidney function improving. We will continue IV fluids at 50 mL/hour. Hypertension: Current blood pressure is 80/51. We will held blood pressure medication. 12/16/2024: Blood pressure 106/58. Improving. Keep blood pressure medication in hold. 12/17/2024: Improving blood pressures, 138/90. We will continue monitoring. Epilepsy: We will continue her home medication lamotrigine. Code status: Full code DVT prophylaxis: Currently on aspirin 325 mg. Analgesia/sedation: Dilaudid Line/tube: PIV GI prophylaxis: None Nutrition: Regular diet PT: Recommends discharged home after two sessions of PT. Prognosis: Guarded Disposition: We will obtain CT scan of the abdomen. Continue physical therapy. Anticipated discharge tomorrow. Magdy Multani Internal Medicine Resident [facility] Date of Service: Dec 17, 2024 Billing Provider: VERN RAZO MD Common Visit Codes: [id number] INP/OBS CARE(HIGH) MAGDY ALVARADO, RES Dec 17, 2024 13:35 VERN RAZO MD Dec 17, 2024 22:05
[2024-12-17 18:00] VITALS: BP 118/64; PULSE 80; RESP 14; TEMP 98.3; O2SAT 93
[2024-12-17 22:00] VITALS: BP 134/81; PULSE 75; RESP 16; TEMP 98.4; O2SAT 93
[2024-12-18 06:00] VITALS: BP 142/79; PULSE 79; RESP 15; TEMP 98.2; O2SAT 93
[2024-12-18 07:31] LABS: BASOPHILS % (AUTO) 0.1 % (0-1); EOSINOPHILS % (AUTO) 0 % (0-6); HEMATOCRIT 31.6 % (35.0-45.0); HEMOGLOBIN 10.6 g/dl (12.0-16.0); LYMPHOCYTES # (AUTO) 2.2 X10'3 (1.1-4.8); LYMPHOCYTES % (AUTO) 27.5 % (21-51); MEAN CORPUSCULAR HGB CONC 33.4 g/dL (33.0-36.5); MEAN CORPUSCULAR VOLUME 89.7 FL (78-98); MEAN PLATELET VOLUME 6.8 FL (7.4-10.4); MONOCYTES # (AUTO) 0.8 X10'3 (0-0.9); MONOCYTES % (AUTO) 9.8 % (2-12); NEUTROPHILS % (AUTO) 62.6 % (42-75); PLATELET COUNT 227 X10'3 (140-440); RED BLOOD COUNT 3.53 X10'6 (4.20-5.60); RED CELL DISTRIBUTION WIDTH 14.1 % (11.5-14.5)
[2024-12-18 07:49] LABS: ALANINE AMINOTRANSFERASE 12 U/L (12-78); ALBUMIN 2.1 G/DL (3.4-5.0); ALBUMIN/GLOBULIN RATIO 0.4 (1.1-1.5); ALKALINE PHOSPHATASE 85 IU/L (46-116); ANION GAP 2 (8-16); ASPARTATE AMINO TRANSFERASE 20 U/L (10-37); BILIRUBIN,TOTAL 0.4 MG/DL (0.1-1.0); BLOOD UREA NITROGEN 20 MG/DL (7-18); CALCIUM 7.6 MG/DL (8.5-10.1); CHLORIDE 109 MMOL/L (99-107); CREATININE 1.25 MG/DL (0.40-0.90); GLUCOSE 96 MG/DL (70-104); POTASSIUM 3.7 MMOL/L (3.5-5.1); SODIUM 142 MMOL/L (135-145); TOTAL CARBON DIOXIDE 30.9 MMOL/L (24-32); TOTAL PROTEIN 7.4 G/DL (6.4-8.2); eCRCL 37 ML/MIN; eGFR 43 ML/MIN
[2024-12-18 08:00] VITALS: RESP 16; O2SAT 95
[2024-12-18 09:55] VITALS: BP 136/82; PULSE 79
[2024-12-18 10:00] VITALS: BP 140/74; PULSE 66; RESP 16; TEMP 97.2; O2SAT 95
[2024-12-18 14:11] VITALS: RESP 16
--- NOTE | 2024-12-18 21:03 | DISCHARGE SUMMARY-Residence ---
Discharge Summary Providers to Resident Creating Document: GRACE AWAD RES ~ Discharge Summary Admission Diagnosis: Proximal proximal left humerus fracture Hospital Course DATE OF ADMISSION: 12/15/24 DATE OF DISCHARGE: 12/18/2024 Hospital course same as mentioned discharge summary. Discharge Diagnosis\Comment: Left shoulder pain: Left proximal humerus fracture: S/P left proximal humerus plate multiple locking and compression screws on 12/15/2024: Acute kidney injury likely secondary to renal tubular stasis: Hypokalemia: Hypertension Epilepsy Operations\Procedures: S/P left proximal humerus plate multiple locking and compression screws on 10/2024: Consultants: Dr. Torres Complications: None Condition on DC: Stable Continued Medications: Buspirone HCl (Buspirone HCl) 30 Mg Tablet 1 TAB PO BID Duloxetine HCl (Duloxetine HCl) 60 Mg Capsule.dr 2 CAP PO DAILY Ferrous Sulfate (Ferrous Sulfate) 325 Mg (65 Mg Iron) Tablet 1 TAB PO DAILY Gabapentin (Gabapentin) 100 Mg Capsule 300 MG PO TID Lamotrigine (Lamotrigine) 25 Mg Tablet 2 TAB PO BID Lisinopril (Lisinopril) 20 Mg Tablet 0.5 TAB PO DAILY Lumateperone Tosylate (Caplyta) 21 Mg Capsule 1 CAP PO DAILY Discontinued Medications: Hydrochlorothiazide (Hydrochlorothiazide) 25 Mg Tablet 0.5 TAB PO DAILY Discharge Summary: As per HPI: [id number] female patient with past medical history of hypertension, sick sinus syndrome s/p pacemaker, epileptic seizures, came to the hospital with chief complaint of left shoulder pain. The patient reports that approximately one month ago she slipped and fell down in her shower. At that time she call to the ambulance and the patient was taken to the emergency department. The patient endorses that she has a follow-up with orthopedic surgeon Dr. Torres, who decided to perform three vergara left proximal humerus plate, multiple locking and compression screws today. We were consulted for further management of comorbidities. The patient currently denies any chest pain, shortness of breath, palpitations, urinary intestinal symptoms. Reports pain in surgical area scale 6/10 in intensity without radiation, sharp type. Hospital course: On further evaluation she had a left proximal humerus fracture, Orthopedics was consulted she had the surgery done on 12/15/2024. Was given pain medications p.r.n. she had JHONATHAN was adequately fluid resuscitated. Home medications were continued for blood pressure and epilepsy. Post surgery she worked with physical therapy and has been cleared for discharge. She is complaining of abdominal pain and distention CT abdomen was done which ruled out obstruction. Her hospital course is uncomplicated she is hemodynamically stable on the day of discharge and her physical exam is as follows: General: Well alert, well oriented, not confused, not agitated, not in acute distress, well cooperated during the physical. HEENT: Conjunctive are pink, sclerae clear, no icterus, pupil is equal in both sides, reactive to light, no ear discharge, no pharyngeal erythema or an edema. Neck: Supple, no JVD, no lymphadenopathy and thyromegaly. Chest: Equal air entry on both lungs, no additional sounds no rhonchi no wheezing at the moment. Cardiovascular: S1-S2 regular sinus rhythm and, regular rate, no gallops, no rubs, no murmurs Abdomen: No visible peristalsis, Bowel sounds present on auscultation, soft, nontender, no guarding, no rigidity, presence of abdominal scars from previous surgery without signs of infection or inflammation. Extremities: No obvious deformities, no pitting edema bilaterally, capillary refill intact, peripheral pulsations are intact on both sides, presence of clean dressing in the left shoulder. Central Nervous System: No focal neurological deficits, no motor or sensory weakness in all 4 extremities, could move all 4 extremities, 2+ deep tendon reflexes, negative Babinski. Musculoskeletal: No joint swelling, deformities, inflammations, and no scoliosis and back tenderness Skin: Warm and dry. Discharge medications can be found above. Laboratory Tests Test 12/17/24 07:15 12/18/24 06:58 White Blood Count 14.4 X10'3 8.0 X10'3 Red Blood Count 3.99 X10'6 3.53 X10'6 Hemoglobin 11.7 g/dl 10.6 g/dl Hematocrit 35.5 % 31.6 % Mean Corpuscular Volume 89.0 FL 89.7 FL Mean Corpuscular Hemoglobin 29.4 PG 30.0 PG Mean Corpuscular Hemoglobin Concent 33.0 g/dL 33.4 g/dL Red Cell Distribution Width 14.1 % 14.1 % Platelet Count 303 X10'3 227 X10'3 Mean Platelet Volume 7.2 FL 6.8 FL Neutrophils (%) (Auto) 75.1 % 62.6 % Lymphocytes (%) (Auto) 17.7 % 27.5 % Monocytes (%) (Auto) 7.0 % 9.8 % Eosinophils (%) (Auto) 0 % 0 % Basophils (%) (Auto) 0.2 % 0.1 % Neutrophils # (Auto) 10.8 X10'3 5.0 X10'3 Lymphocytes # (Auto) 2.5 X10'3 2.2 X10'3 Monocytes # (Auto) 1.0 X10'3 0.8 X10'3 Eosinophils # (Auto) 0.0 X10'3 0.0 X10'3 Basophils # (Auto) 0.0 X10'3 0.0 X10'3 CBC Comment Sodium Level 141 MMOL/L 142 MMOL/L Potassium Level 3.9 MMOL/L 3.7 MMOL/L Chloride Level 106 MMOL/L 109 MMOL/L Carbon Dioxide Level 28.8 MMOL/L 30.9 MMOL/L Anion Gap 6 2 Blood Urea Nitrogen 22 MG/DL 20 MG/DL Creatinine 1.54 MG/DL 1.25 MG/DL Estimated GFR/1.73 m2 34 ML/MIN 43 ML/MIN BUN/Creatinine Ratio 14.3 16.0 Glucose Level 116 MG/DL 96 MG/DL Calcium Level 7.8 MG/DL 7.6 MG/DL Total Bilirubin 0.3 MG/DL 0.4 MG/DL Aspartate Amino Transf (AST/SGOT) 19 U/L 20 U/L Alanine Aminotransferase (ALT/SGPT) 9 U/L 12 U/L Alkaline Phosphatase 85 IU/L 85 IU/L Total Protein 8.1 G/DL 7.4 G/DL Albumin 2.4 G/DL 2.1 G/DL Globulin 5.7 G/DL 5.3 G/DL Albumin/Globulin Ratio 0.4 0.4 Chemistry Comments *Problems/Diagnosis: (1) JHONATHAN (acute kidney injury) (2) Fracture of humerus Status: Acute Total Time Spent on D/C: > 30 Minutes Date of Service: Dec 18, 2024 Billing Provider: VERN RAZO MD Common Visit Codes: 54479-XWD/OBS DISCH DAY >30min GRACE AWAD RES Dec 18, 2024 21:03 VERN RAOZ MD Dec 19, 2024 06:47
== END 2024-12-18 15:12 | disposition home health service (06) | DRG 492 ==
LOC: PAS IN 08:52 → ORTHO 4S 15:50
PROVIDERS: ADMIT Orthopaedic Surgery; ATTEND Orthopaedic Surgery
PROC: 0PSD04Z Reposition Left Humeral Head with Internal Fixation Device, Open Approach (ICD-10-PCS; principal; 2024-12-15 11:39)
DX: S42.292A Other displaced fracture of upper end of left humerus, initial encounter for closed fracture (principal); N17.0 Acute kidney failure with tubular necrosis; D62 Acute posthemorrhagic anemia; I10 Essential (primary) hypertension; G40.909 Epilepsy, unspecified, not intractable, without status epilepticus; E87.6 Hypokalemia; W18.39XA Other fall on same level, initial encounter; Y93.89 Activity, other specified; Y92.89 Other specified places as the place of occurrence of the external cause; Y99.8 Other external cause status; Z95.0 Presence of cardiac pacemaker; Z90.49 Acquired absence of other specified parts of digestive tract; Z90.710 Acquired absence of both cervix and uterus
CPT/HCPCS: 36415; 73020; 73030; 74176; 76000; 80047; 80053; 82570; 83930; 83935; 84156; 84300; 84540; 85025; 85610; 85730; 87081; 87207; 97110; 97116; 97161; 97530; A4615; A4618; A6258; A6449; A7000; C1713; G0378; J0690; J0780; J1100; J1171; J2250; J2270; J2405; J2765; J2795; J3010; J3370; J3372; J3480; J3490; J7030; J7040; J7120; L3670; P9045